=== PATIENT | female | born 1955 | race Caucasian/White ===

== ENCOUNTER 2018-05-14 16:05 | Emergency (ER) | payer OTHER ==
[~2018-05-14] VITALS: Ht 154.9 cm; Wt 74.8 kg
[2018-05-14] MEDS ORDERED: IV NORMAL SALINE 1,000ML 1,000 ML IV SCH (16:30)
[2018-05-14] MEDS ORDERED: KETOROLAC 30 MG/ML VIAL. IV ONE (16:30)
[2018-05-14] MEDS ORDERED: ONDANSETRON PF 4 MG/2 ML VIAL. IV ONE (16:30)
[2018-05-14 16:50] LABS: BASO # 0.1 x10^3/uL (0.0-0.2); BASO % 1 % (0-3); EOS # 0.1 x10^3/uL (0.0-0.7); EOS % 1 % (0-3); HEMOGLOBIN 14.3 g/dL (12.0-15.5); LYMPH # 1.6 x10^3/uL (1.0-4.8); LYMPH % 13 % (24-48); MEAN CORPUSCULAR HEMOGLOBIN 30 pg (25-35); MEAN CORPUSCULAR HGB CONC 33 g/dL (31-37); MEAN CORPUSCULAR VOLUME 89 fL (79-100); MONO # 0.7 x10^3/uL (0.0-1.1); MONO % 5 % (0-9); NEUT # 10.1 x10^3uL (1.8-7.7); NEUT % 81 % (31-73); PLATELET COUNT 287 x10^3/uL (140-400); RED BLOOD COUNT 4.84 x10^6/uL (3.50-5.40); RED CELL DISTRIBUTION WIDTH 13.1 % (11.5-14.5); WHITE BLOOD COUNT 12.6 x10^3/uL (4.0-11.0)
--- NOTE | 2018-05-14 16:58 | RAD ---
CT of the abdomen and pelvis without contrast, 05/14/2018: HISTORY: Suprapubic pain, UTI, hematuria, history of renal calculi Noncontrast scans were obtained utilizing the renal stone protocol. There is a single 3 mm intrarenal calculus on the left. The renal collecting systems and ureters are not dilated. No ureteral or bladder calculus is evident. A 4 mm nodule of fatty density is seen laterally in the right kidney. The appearance suggests a small angiomyolipoma. The unopacified kidneys are otherwise unremarkable. The unopacified liver shows no abnormality. There is a 2 cm gallstone in the gallbladder demonstrating a calcified rim. The gallbladder is contracted. No pericholecystic edema is seen. No pancreatic abnormality is detected. The spleen is of normal size. There is minimal aortic calcific plaquing. No abdominal or pelvic adenopathy is seen. The uterus is unremarkable. There is moderate diffuse bladder wall thickening. There is mild streaky increased density in the adjacent fat, best seen along the anterosuperior margin of the urinary bladder, compatible with inflammation. The bowel loops are not dilated. The appendix is visualized and shows no abnormality. No free fluid or free air is evident in the abdomen or pelvis. IMPRESSION: 1. Small nonobstructing left intrarenal calculi. 2. No obstructing urinary tract calculi are identified. 3. Moderate diffuse bladder wall thickening suggesting cystitis. 4. Small fatty lesion in the right kidney, most likely an angiomyolipoma. 5. Large gallstone in a contracted gallbladder. PQRS Compliance Statement: One or more of the following individualized dose reduction techniques were utilized for this examination: 1. Automated exposure control 2. Adjustment of the mA and/or kV according to patient size 3. Use of iterative reconstruction technique Electronically signed by: Salty Nieto MD (05/14/2018 4:55 PM) [facility]
[2018-05-14 17:02] LABS: ALBUMIN/GLOBULIN RATIO 1.1 (1.0-1.7); CALCIUM 9.2 mg/dL (8.5-10.1); CREATININE 0.9 mg/dL (0.6-1.0); GFR 63.9; POTASSIUM 3.7 mmol/L (3.5-5.1); TOTAL BILIRUBIN 0.6 mg/dL (0.2-1.0); TOTAL PROTEIN 7.5 g/dL (6.4-8.2)
[2018-05-14] MEDS ORDERED: CIPR250T30 PO (17:13)
[2018-05-14] MEDS ORDERED: HYDR-3165 PO (17:13)
[2018-05-14] MEDS ORDERED: ONDA4TAB7 PO (17:13)
[2018-05-14] MEDS ORDERED: PHEN100T82 PO (17:13)
[2018-05-14] MEDS ORDERED: NAPR-683 PO (17:13)
--- NOTE | 2018-05-14 17:13 | PHYS DOC ---
Past History Past Medical History: No Pertinent History Past Surgical History: Other Smoking: Non-smoker Alcohol Use: None Drug Use: None Adult General Chief Complaint Chief Complaint: abdominal pain HPI HPI Patient is a 62 year old female who presents with complaining of suprapubic pain. Patient states he has had intermittent episodes of suprapubic pain since yesterday that became constant for the last 5 hours as a pressure pain without radiation. Patient rated her pain 7/10 and complaining of nausea and urinary frequency and dysuria. Patient states she had history of kidney stone and UTI previously with the same symptoms. Patient denies fever and chills, diarrhea and constipation, vomiting, recent dehydration. Review of Systems Review of Systems Constitutional: Denies fever or chills [] Eyes: Denies change in visual acuity, redness, or eye pain [] HENT: Denies nasal congestion or sore throat [] Respiratory: Denies cough or shortness of breath [] Cardiovascular: No additional information not addressed in HPI [] GI: Reports abdominal pain, nausea, denies vomiting, bloody stools or diarrhea [ ] : Reports dysuria and frequency Musculoskeletal: Denies back pain or joint pain [] Integument: Denies rash or skin lesions [] Neurologic: Denies headache, focal weakness or sensory changes [] Endocrine: Denies polyuria or polydipsia [] All other systems were reviewed and found to be within normal limits, except as documented in this note. Current Medications Current Medications Current Medications Medications (Trade) Dose Ordered Sig/Yadi Start Time Stop Time Status Last Admin Dose Admin Ceftriaxone Sodium 1 gm/ Sodium Chloride 50 ml @ 100 mls/hr 1X ONCE 05/14/18 17:15 05/14/18 17:44 UNV Ketorolac Tromethamine (Toradol 30mg Vial) 30 mg 1X ONCE 05/14/18 16:30 05/14/18 16:37 DC 05/14/18 16:39 30 MG Ondansetron HCl (Zofran) 4 mg 1X ONCE 05/14/18 16:30 05/14/18 16:37 DC 05/14/18 16:39 4 MG Sodium Chloride 1,000 ml @ 1,000 mls/hr Q1H 05/14/18 16:30 05/14/18 17:29 05/14/18 16:39 1,000 MLS/HR Allergies Allergies Allergies Coded Allergies Type Severity Reaction Last Updated Verified No Known Allergies Allergy Unknown 05/14/18 Yes Physical Exam Physical Exam Constitutional: Well developed, well nourished, moderate acute distress, non- toxic appearance. [] HENT: Normocephalic, atraumatic, oropharynx moist, no oral exudates, nose normal. [] Eyes: PERRLA, EOMI, conjunctiva normal, no discharge. [] Neck: Normal range of motion, no tenderness, supple, no stridor. [] Cardiovascular:Heart rate regular rhythm, no murmur [] Lungs & Thorax: Bilateral breath sounds clear to auscultation [] Abdomen: Bowel sounds normal, soft, suprapubic guarding, no tenderness, no masses, no pulsatile masses. [] Skin: Warm, dry, no erythema, no rash. [] Back: No tenderness, no CVA tenderness. [] Extremities: No tenderness, no cyanosis, no clubbing, ROM intact, no edema. [] Neurologic: Alert and oriented X 3, normal motor function, normal sensory function, no focal deficits noted. [] Psychologic: Affect normal, judgement normal, mood normal. [] Current Patient Data Vital Signs Vital Signs Date Time Temp Pulse Resp B/P (MAP) Pulse Ox O2 Delivery O2 Flow Rate FiO2 05/14/18 16:11 98.0 110 20 97 Room Air Lab Results Laboratory Tests Test 05/14/18 16:31 White Blood Count 12.6 x10^3/uL (4.0-11.0) H Red Blood Count 4.84 x10^6/uL (3.50-5.40) Hemoglobin 14.3 g/dL (12.0-15.5) Hematocrit 43.0 % (36.0-47.0) Mean Corpuscular Volume 89 fL (79-100) Mean Corpuscular Hemoglobin 30 pg (25-35) Mean Corpuscular Hemoglobin Concent 33 g/dL (31-37) Red Cell Distribution Width 13.1 % (11.5-14.5) Platelet Count 287 x10^3/uL (140-400) Neutrophils (%) (Auto) 81 % (31-73) H Lymphocytes (%) (Auto) 13 % (24-48) L Monocytes (%) (Auto) 5 % (0-9) Eosinophils (%) (Auto) 1 % (0-3) Basophils (%) (Auto) 1 % (0-3) Neutrophils # (Auto) 10.1 x10^3uL (1.8-7.7) H Lymphocytes # (Auto) 1.6 x10^3/uL (1.0-4.8) Monocytes # (Auto) 0.7 x10^3/uL (0.0-1.1) Eosinophils # (Auto) 0.1 x10^3/uL (0.0-0.7) Basophils # (Auto) 0.1 x10^3/uL (0.0-0.2) Sodium Level 141 mmol/L (136-145) Potassium Level 3.7 mmol/L (3.5-5.1) Chloride Level 103 mmol/L (98-107) Carbon Dioxide Level 31 mmol/L (21-32) Anion Gap 7 (6-14) Blood Urea Nitrogen 11 mg/dL (7-20) Creatinine 0.9 mg/dL (0.6-1.0) Estimated GFR (Cockcroft-Gault) 63.9 BUN/Creatinine Ratio 12 (6-20) Glucose Level 142 mg/dL (70-99) H Calcium Level 9.2 mg/dL (8.5-10.1) Total Bilirubin 0.6 mg/dL (0.2-1.0) Aspartate Amino Transferase (AST) 13 U/L (15-37) L Alanine Aminotransferase (ALT) 17 U/L (14-59) Alkaline Phosphatase 95 U/L (46-116) Total Protein 7.5 g/dL (6.4-8.2) Albumin 4.0 g/dL (3.4-5.0) Albumin/Globulin Ratio 1.1 (1.0-1.7) Lipase 153 U/L (73-393) EKG EKG [] Radiology/Procedures Radiology/Procedures [address] [id number] IMAGING REPORT Signed PATIENT: SAY ALVAREZ ACCOUNT: [id number] : 1955 LOCATION: ER AGE: 62 SEX: F EXAM STATUS: REG ER ORD. PHYSICIAN: NATO DAVIDSON MD REASON: Suprapubic pain,UTI,gross hematuria,HX renal calculi PROCEDURE: CT ABDOMEN PELVIS WO CONTRAST CT of the abdomen and pelvis without contrast, 05/14/2018: HISTORY: Suprapubic pain, UTI, hematuria, history of renal calculi Noncontrast scans were obtained utilizing the renal stone protocol. There is a single 3 mm intrarenal calculus on the left. The renal collecting systems and ureters are not dilated. No ureteral or bladder calculus is evident. A 4 mm nodule of fatty density is seen laterally in the right kidney. The appearance suggests a small angiomyolipoma. The unopacified kidneys are otherwise unremarkable. The unopacified liver shows no abnormality. There is a 2 cm gallstone in the gallbladder demonstrating a calcified rim. The gallbladder is contracted. No pericholecystic edema is seen. No pancreatic abnormality is detected. The spleen is of normal size. There is minimal aortic calcific plaquing. No abdominal or pelvic adenopathy is seen. The uterus is unremarkable. There is moderate diffuse bladder wall thickening. There is mild streaky increased density in the adjacent fat, best seen along the anterosuperior margin of the urinary bladder, compatible with inflammation. The bowel loops are not dilated. The appendix is visualized and shows no abnormality. No free fluid or free air is evident in the abdomen or pelvis. IMPRESSION: 1. Small nonobstructing left intrarenal calculi. 2. No obstructing urinary tract calculi are identified. 3. Moderate diffuse bladder wall thickening suggesting cystitis. 4. Small fatty lesion in the right kidney, most likely an angiomyolipoma. 5. Large gallstone in a contracted gallbladder. PQRS Compliance Statement: One or more of the following individualized dose reduction techniques were utilized for this examination: 1. Automated exposure control 2. Adjustment of the mA and/or kV according to patient size 3. Use of iterative reconstruction technique Electronically signed by: Salty Nieto MD (05/14/2018 4:55 PM) [facility] DICTATED AND SIGNED BY: SALTY NIETO MD DATE: 05/14/18 4606 CC: MAGALY JOHNSON MD; NATO DAVIDSON MD ~ Course & Med Decision Making Course & Med Decision Making Pertinent Labs and Imaging studies reviewed. (See chart for details) discharge: I've spoken with the patient and/or caregivers. I've explained the patient's condition, diagnosis and treatment plan based on information available to me at this time. I've answered the patient's and/or caregivers questions and addressed any concerns. The patient and/or caregivers have a good understanding the patient's diagnosis, condition and treatment plan as can be expected at this point. Vital signs have been stabilized. The patient's condition is stable for discharge from the emergency department. The patient will pursue further outpatient evaluation with her primary care provider or other designated consulting physician as outlined in the discharge instructions. Patient and/or caregivers are agreeable to this plan of care and follow-up instructions have been explained in detail. The patient and/or caregivers have received these instructions in written format and expressed understanding of these discharge instructions. The patient and her caregivers are aware that if any significant change in condition or worsening of symptoms should prompt him to immediately return to this of the closest emergency department. If an emergent department is not readily available I would encourage him to call 911. Prabhu Disclaimer Dragon Disclaimer This electronic medical record was generated, in whole or in part, using a voice recognition dictation system. Departure Departure: Impression: Primary Impression: Acute hemorrhagic cystitis Additional Impressions: Dysuria Suprapubic pain Cholelithiasis Disposition: 01 HOME, SELF-CARE Condition: IMPROVED Referrals: MAGALY JOHNSON MD (PCP) Patient Instructions: Cholelithiasis, Dysuria, Urinary Tract Infection Additional Instructions: Drink plenty of liquids Follow-up with your primary care physician in 3-5 days Return to ER if not getting better Scripts Ondansetron Hcl (ZOFRAN) 4 Mg Tablet 1 TAB PO Q6HRS for nausea and vomiting, #12 TAB Prov: NATO DAVIDSON MD 05/14/18 Hydrocodone Bit/Acetaminophen (NORCO 5-325 TABLET) 1 Each Tablet 1 TAB PO PRN Q6HRS PRN for PAIN, #10 TAB 0 Refills Prov: NATO DAVIDSON MD 05/14/18 Phenazopyridine Hcl (PYRIDIUM) 100 Mg Tablet 100 MG PO BID for dysuria, #14 TAB Prov: NATO DAVIDSON MD 05/14/18 Naproxen (NAPROSYN) 500 Mg Tablet 500 MG PO BID for pain, #20 TAB Prov: NATO DAVIDSON MD 05/14/18 Ciprofloxacin Hcl (CIPRO) 250 Mg Tablet 1 TAB PO BID for urinary tract infection, #14 TAB Prov: NATO DAVIDSON MD 05/14/18 Problem Qualifiers NATO DAVIDSON MD May 14, 2018 17:13
[2018-05-14] MEDS ORDERED: IV NORMAL SALINE 50ML 50 ML ONE (17:15)
[2018-05-14] MEDS ORDERED: cefTRIAXone SODIUM 1 GM VIAL ONE (17:15)
[2018-05-14 17:55] VITALS: BP 135/90
[2018-05-14 21:33] LABS: BACTERIA,URINE FEW /HPF (0-FEW); BILIRUBIN,URINE NEG (NEG); CLARITY,URINE CLOUDY; COLOR,URINE PINK; GLUCOSE,URINE NEG (NEG); NITRITE,URINE NEG (NEG); SQUAMOUS EPITHELIAL CELL,UR OCC /LPF; UROBILINOGEN,URINE 0.2 mg/dL (0.2 mg/dL); WBC,URINE 20-40 /HPF (0-4)
== END 2018-05-14 18:01 | disposition home or self-care (01) ==
LOC: ER 16:05
DX: N30.00 Acute cystitis without hematuria (principal); K80.20 Calculus of gallbladder without cholecystitis without obstruction; N20.0 Calculus of kidney; Z87.442 Personal history of urinary calculi
CPT/HCPCS: 36415; 74176; 80053; 81001; 83690; 85025; 87086; 96365; 96375; 99284; J0696; J1885; J2405; 87186; J7030

== ENCOUNTER → 2018-06-27 | Outpatient (CLI) | payer OTHER ==
[~2018-06-27] MED LIST: CIPR250T30 PO; HYDR-3165 PO; NAPR-683 PO; ONDA4TAB7 PO; PHEN100T82 PO
--- NOTE | 2018-06-27 12:00 | RAD ---
EXAM: Abdomen sonogram. HISTORY: Cholelithiasis and liver lesion on CT. TECHNIQUE: Sonographic imaging of the abdomen was performed. COMPARISON: CT dated 05/14/2018. FINDINGS: The liver is normal in size. No focal hepatic lesion is seen. The common bile duct is normal in caliber. There is a large mobile stone within the gallbladder measuring approximately 1.4 cm. There is no bladder wall thickening or pericholecystic fluid. The kidneys are normal in size. There is an echogenic focus within the left kidney, likely due to a recently demonstrated nonobstructing stone. There is no hydronephrosis. The spleen, pancreas, aorta and inferior vena cava are unremarkable. IMPRESSION: 1. Cholelithiasis. This consists of single large mobile stone. 2. Nonobstructing left renal stone. 3. Note is made that a suspected angiomyolipoma within the right kidney demonstrated on the prior CT is not seen sonographically. This may be obscured due to small size. 4. Otherwise, unremarkable abdomen sonogram. Electronically signed by: Ludivina Nash MD (06/27/2018 11:57 AM) [id number]
== END | disposition home or self-care (01) ==
LOC: US 08:47
PROVIDERS: ATTEND Internal Medicine Gastroenterology
DX: K80.20 Calculus of gallbladder without cholecystitis without obstruction (principal); N20.0 Calculus of kidney
CPT/HCPCS: 76700